=== PATIENT | female | born 1995 | race Caucasian/White ===

== ENCOUNTER → 2017-08-07 | Outpatient (REF) | payer BC ==
[2017-08-07 13:12] LABS: PLATELET COUNT, AUTOMATED 343 K/uL (150-450)
== END ==
PROVIDERS: ATTEND Nurse Practitioner Family
DX: R07.0 Pain in throat (principal); R11.10 Vomiting, unspecified
CPT/HCPCS: 82040; 82247; 82310; 82374; 82435; 82565; 82947; 84075; 84132; 84155; 84295; 84450; 84460; 84520; 85025

== ENCOUNTER → 2018-07-02 | Outpatient (REF) | payer BC | LOC: ZZSTITCHES 12:03 | PROVIDERS: ATTEND Physician Assistant | DX: N39.0 Urinary tract infection, site not specified (principal); N93.8 Other specified abnormal uterine and vaginal bleeding; R10.2 Pelvic and perineal pain; N92.0 Excessive and frequent menstruation with regular cycle; R82.998 Other abnormal findings in urine | CPT/HCPCS: 87088 ==